=== PATIENT | female | born 1965 | race Two or more races ===

== ENCOUNTER 2019-09-12 08:47 | Emergency (ER) | payer OTHER ==
[~2019-09-12] VITALS: Ht 165.1 cm; Wt 117.5 kg
[2019-09-12 08:49] VITALS: Ht 165.1 cm; Wt 117.5 kg
[2019-09-12 09:46] LABS: BASOPHIL % 0.5 % (0-2); PLATELET COUNT 382 x10^3mcL (130-400); RED CELL DISTRIBUTION WIDTH 14.5 % (11.5-14.5)
[2019-09-12 10:02] LABS: CALCIUM 8.4 mg/dL (8.5-10.1); CARBON DIOXIDE 29.3 mmol/L (21-32); CHLORIDE SERUM 105 mmol/L (98-107); CREATININE SERUM 0.6 mg/dL (0.6-1.0); GFR1 > 60 mL/min; GLUCOSE SERUM 119 mg/dL (74-106); POTASSIUM SERUM 4.2 mmol/L (3.5-5.1); SODIUM SERUM 142 mmol/L (136-145)
[2019-09-12 10:07] LABS: ALKALINE PHOSPHATASE 86 U/L (46-116); ALT/SGPT 36 U/L (14-59); AST/SGOT 23 U/L (15-37); BILIRUBIN TOTAL 0.4 mg/dL (0.20-1.00); TOTAL PROTEIN, SERUM 6.8 g/dL (6.4-8.2)
[2019-09-12 10:22] LABS: ALBUMIN 3.1 g/dL (3.4-5.0)
[2019-09-12 10:40] VITALS: BP 157/84
== END 2019-09-12 10:40 | disposition home or self-care (01) ==
LOC: ED 08:47
PROVIDERS: Emergency Medicine
DX: R06.02 Shortness of breath (principal); I10 Essential (primary) hypertension; E11.9 Type 2 diabetes mellitus without complications
CPT/HCPCS: 36415; Q0092

== ENCOUNTER 2020-01-20 00:16 | Emergency (ER) | payer OTHER ==
[~2020-01-20] VITALS: Ht 165.1 cm; Wt 119.7 kg
[2020-01-20 00:19] VITALS: Ht 165.1 cm; Wt 119.7 kg
[2020-01-20 02:27] LABS: BASOPHIL % 1.1 % (0-2)
[2020-01-20 02:27] LABS: UA SPECIFIC GRAVITY 1.015 (1.005-1.035); microscopic required? YES; urine erythrocyte NEGATIVE (NEGATIVE)
[2020-01-20 02:28] LABS: PLATELET COUNT 426 x10^3mcL (130-400); RED CELL DISTRIBUTION WIDTH 14.6 % (11.5-14.5)
[2020-01-20 03:52] LABS: CALCIUM 9.6 mg/dL (8.5-10.1); CHLORIDE SERUM 107 mmol/L (98-107); CREATININE SERUM 0.9 mg/dL (0.6-1.0); GFR1 > 60 mL/min; GLUCOSE SERUM 160 mg/dL (74-106); POTASSIUM SERUM 3.7 mmol/L (3.5-5.1); SODIUM SERUM 144 mmol/L (136-145)
[2020-01-20 03:57] LABS: ALBUMIN 3.5 g/dL (3.4-5.0); ALKALINE PHOSPHATASE 66 U/L (46-116); ALT/SGPT 29 U/L (14-59); AST/SGOT 17 U/L (15-37); BILIRUBIN TOTAL 0.17 mg/dL (0.20-1.00); TOTAL PROTEIN, SERUM 7.3 g/dL (6.4-8.2)
[2020-01-20 04:17] VITALS: BP 155/57
== END 2020-01-20 04:17 | disposition home or self-care (01) ==
LOC: ED 00:16
PROVIDERS: Emergency Medicine
DX: S39.011A Strain of muscle, fascia and tendon of abdomen, initial encounter (principal); E11.9 Type 2 diabetes mellitus without complications; I10 Essential (primary) hypertension; N39.0 Urinary tract infection, site not specified; X58.XXXA Exposure to other specified factors, initial encounter; Y93.89 Activity, other specified; Y92.89 Other specified places as the place of occurrence of the external cause; Y99.8 Other external cause status
CPT/HCPCS: 36415; J1885

== ENCOUNTER 2020-06-22 18:32 | Emergency (ER) | payer OTHER ==
[~2020-06-22] VITALS: Ht 165.1 cm; Wt 115.2 kg
[2020-06-22 18:52] VITALS: Ht 165.1 cm; Wt 115.2 kg
[2020-06-22 19:26] LABS: BASOPHIL % 0.7 % (0-2); RED CELL DISTRIBUTION WIDTH 13.9 % (11.5-14.5)
[2020-06-22 19:27] LABS: PLATELET COUNT 485 x10^3mcL (130-400)
[2020-06-22 19:47] LABS: ALBUMIN 3.7 g/dL (3.4-5.0); ALKALINE PHOSPHATASE 61 U/L (46-116); ALT/SGPT 25 U/L (14-59); AST/SGOT 10 U/L (15-37); BILIRUBIN TOTAL 0.26 mg/dL (0.20-1.00); CALCIUM 9.4 mg/dL (8.5-10.1); CARBON DIOXIDE 24.8 mmol/L (21-32); CHLORIDE SERUM 105 mmol/L (98-107); GFR1 > 60 mL/min; POTASSIUM SERUM 3.6 mmol/L (3.5-5.1); SODIUM SERUM 142 mmol/L (136-145); TOTAL PROTEIN, SERUM 7.5 g/dL (6.4-8.2)
[2020-06-22 19:54] LABS: GLUCOSE SERUM 51 mg/dL (74-106)
[2020-06-22 19:55] LABS: T3 TOTAL 1.26 ng/mL
[2020-06-22 20:16] LABS: FREE T4 1.29 ng/dL (0.76-1.46); FREE THYROXINE INDEX 3.2 ug/dL (1.4-4.5)
[2020-06-22 21:07] LABS: AMPHETAMINE QUAL UR NONE DETECTED (See below)
[2020-06-23 01:01] VITALS: BP 145/77
== END 2020-06-23 01:01 | disposition home or self-care (01) ==
LOC: ED 18:32
PROVIDERS: Emergency Medicine
DX: F32.9 Major depressive disorder, single episode, unspecified (principal); S61.412A Laceration without foreign body of left hand, initial encounter; I10 Essential (primary) hypertension; E11.9 Type 2 diabetes mellitus without complications; Z20.828 Contact with and (suspected) exposure to other viral communicable diseases; W26.0XXA Contact with knife, initial encounter; Y93.89 Activity, other specified; Y92.89 Other specified places as the place of occurrence of the external cause; Y99.8 Other external cause status
CPT/HCPCS: 82962; 84439; G0480; J2001; U0003-CS